=== PATIENT | female | born 1990 | race Caucasian/White ===

== ENCOUNTER 2016-02-26 09:16 | Emergency (ER) | payer OTHER ==
[~2016-02-26] VITALS: Ht 172.7 cm; Wt 68.0 kg
[2016-02-26] MEDS ORDERED: LEVOTHYROXINE137 MCG PO (09:32)
[2016-02-26 09:46] LABS: HEMATOCRIT 37.2 % (36.0-46.0); MCH 29.3 PG (29.0-34.0); MCHC 34.7 G/DL (30.0-36.0); MCV 84.4 FL (83-99); MEAN PLAT.VOLUME 9.7 uM^3 (9.5-12.4); PLATELET COUNT 184 K/uL (156-360); RBC DIS.WIDTH-CV 12.4 % (11.8-14.6); RBC DIS.WIDTH-SD 37.6 % (39-53); RED BLOOD COUNT 4.41 M/uL (3.80-5.20); WHITE BLOOD COUNT 5.9 K/uL (4.1-10.2)
[2016-02-26 09:56] LABS: CHLORIDE 108 mEq/L (99-109); POTASSIUM 3.5 mEq/L (3.7-5.4); SODIUM 140 mEq/L (136-147)
[2016-02-26 09:58] LABS: GLUCOSE 117 mg/dL (70-99)
[2016-02-26 09:59] LABS: ANION GAP 13 MEQ/L (2-14)
[2016-02-26 10:02] LABS: GFR ESTIMATE (CALCULATED) > 59 mL/min/
[2016-02-26 10:03] LABS: ADD MIUA? YES; BILIRUBIN SMALL; BLOOD LARGE; COLOR DK YELLOW ((YELLOW)); GLUCOSE (STRIP) NEGATIVE; KETONES TRACE; LEUKOCYTES TRACE; NITRITE NEGATIVE; PH, URINE 5.5 (5-8); PROTEIN (STRIP) 100; SPECIFIC GRAVITY 1.041 (1.000-1.030)
[2016-02-26 10:03] LABS: UREA NITROGEN (BUN) 15 mg/dL (9-23)
[2016-02-26 10:08] LABS: TROP-I INTERPRETATION NEGATIVE; TROPONIN-I < 0.01 ng/mL (0.0-0.30)
[2016-02-26 10:10] LABS: QUANTITATIVE HCG < 4.0 MIU/ML
[2016-02-26 10:35] LABS: EPITHELIAL CELLS 1+; MUCUS 1+
[2016-02-26 10:36] LABS: BACTERIA 1+; CASTS NONE SEEN /LPF; CRYSTALS NONE SEEN; UCUL ADDED? NO
[2016-02-26] MEDS ORDERED: ZOFRAN ODT4 MG PO (12:55)
[2016-02-26 13:10] VITALS: BP 101/65
== END 2016-02-26 14:00 | disposition home or self-care (01) ==
LOC: EME 09:16
PROVIDERS: Emergency Medicine
DX: R55 Syncope and collapse (principal); E86.0 Dehydration; R94.31 Abnormal electrocardiogram [ECG] [EKG]; E03.9 Hypothyroidism, unspecified
CPT/HCPCS: 71010; 80048; 81003; 84484; 84702; 85027; 93005; 99281; 99284; J7030